=== PATIENT | female | born 1950 | race African-American/Black ===

== ENCOUNTER 2017-12-10 23:26 | Emergency (ER) | payer MEDICARE, OTHER ==
[~2017-12-10] VITALS: Ht 157.5 cm; Wt 113.0 kg
[~2017-12-10 23:26] MED LIST: ASPI-1159 PO; ATORVASTATIN; BACL-141 PO; CHOL100044 PO; CYCLOBENZAPRINE; LEVO175T7 PO; LISI-186 PO; MICAR4 PO; MULT-1146 PO; OMEP40CA34 PO; REGLAN; RISP05 PO; TRAVATAN; TRAZADONE; TYLENOL; ZOFRAN; biotin PO; vitamin c PO; welchol PO
[2017-12-11 05:45] LABS: BASOPHILS % 0.9 % (0.0-2.0); EOSINOPHILS % 1.6 % (0.0-5.0); HEMATOCRIT. 41.9 % (36.0-48.0); HEMOGLOBIN. 14.2 g/dL (12.0-16.0); LYMPHOCYTES % 30.3 % (20.0-50.0); MEAN CORPUSCULAR HEMOGLOBIN 29.4 pg (28.0-32.0); MEAN CORPUSCULAR VOLUME 86.6 fL (81.0-99.0); MEAN PLATELET VOLUME 9.3 fl (7.4-10.4); MONOCYTES % 11.9 % (2.0-8.0); NEUTROPHILS % 55.3 % (40.0-76.0); PLATELET 157 x1000/uL (130-400); RED BLOOD CELL COUNT 4.83 mill/uL (4.2-5.4); RED CELL DISTRIBUTION WIDTH 13.5 % (11.6-14.6)
[2017-12-11 05:54] LABS: CARBON DIOXIDE 23 mEq/L (21-32); CHLORIDE 110 mEq/L (98-107)
[2017-12-11 07:13] VITALS: BP 115/65
[2017-12-11 07:13] LABS: CLARITY URINE CLOUDY (CLEAR); COLOR URINE YELLOW (YELLOW); KETONES URINE NEGATIVE (NEGATIVE); LEUKOCYTE ESTERASE URINE NEGATIVE (NEGATIVE); NITRITE URINE NEGATIVE (NEGATIVE); OCCULT BLOOD URINE 3+ (NEGATIVE); PROTEIN URINE 1+ (NEGATIVE); SPECIFIC GRAVITY URINE 1.021 (1.005-1.030); UROBILINOGEN URINE 0.2 E.U./dL (0.2-1.0)
== END 2017-12-11 07:39 | disposition home or self-care (01) ==
LOC: ER 23:47
DX: R31.9 Hematuria, unspecified (principal); R10.30 Lower abdominal pain, unspecified; M54.9 Dorsalgia, unspecified; G89.29 Other chronic pain; E78.00 Pure hypercholesterolemia, unspecified; E11.9 Type 2 diabetes mellitus without complications; I10 Essential (primary) hypertension; Z79.82 Long term (current) use of aspirin; Z90.49 Acquired absence of other specified parts of digestive tract; Z98.51 Tubal ligation status
CPT/HCPCS: 36415; 80048; 81001; 85025; 87077; 87086; 87186; 99284; A4315

== ENCOUNTER → 2018-07-20 | Outpatient (CLI) | payer MEDICARE, OTHER ==
[~2018-07-20] MED LIST changes: +ALBU90AE IH; -ATORVASTATIN; +CALC-25 PO; -CYCLOBENZAPRINE; +DULA0.75 SQ; +ERYT1OIN6 OP; +FOLI-43 PO; +LIDO5CRE18 TP; +LIFI1DRO OP; +LOVA20TA2 PO; -REGLAN; -RISP05 PO; +TOLT2TAB2 PO; -TRAVATAN; -TRAZADONE; -TYLENOL; -ZOFRAN; -biotin PO; -vitamin c PO; -welchol PO
== END | disposition home or self-care (01) ==
LOC: US 09:28
PROVIDERS: ATTEND Internal Medicine Gastroenterology
DX: K76.0 Fatty (change of) liver, not elsewhere classified (principal); N28.1 Cyst of kidney, acquired; B19.20 Unspecified viral hepatitis C without hepatic coma; R16.0 Hepatomegaly, not elsewhere classified; Z90.49 Acquired absence of other specified parts of digestive tract
CPT/HCPCS: 76700

== ENCOUNTER 2022-10-09 12:59 | Inpatient (IN) | payer MEDICARE, MEDICAID ==
[~2022-10-09] VITALS: Ht 167.6 cm; Wt 125.2 kg
[~2022-10-09 12:59] MED LIST changes: -ASPI-1159 PO; +ASPI-1497 PO; -CALC-25 PO; +CALC-26 PO; -LIFI1DRO OP; +LIFI1DRO3 OP; +OMEP40CA20 PO; -OMEP40CA34 PO; +TOLT2TAB18 PO; -TOLT2TAB2 PO
[2022-10-09] MEDS ORDERED: KETOROLAC 15MG/ML VIAL IV ONE (16:45)
[2022-10-09] MEDS ORDERED: APIXABAN 5 MG TABLET PO STA (17:08)
[2022-10-09] MEDS ORDERED: CEFTRIAXONE 1 G PREMIX 50 ML IV ONE (17:15)
[2022-10-09 19:04] LABS: BASOPHILS % 0.6 % (0.0-2.0); EOSINOPHILS % 0.8 % (0.0-5.0); HEMATOCRIT. 40.1 % (36.0-48.0); LYMPHOCYTES % 26.1 % (20.0-50.0); MEAN CORPUSCULAR HEMOGLOBIN 27.6 pg (28.0-32.0); MEAN CORPUSCULAR VOLUME 85.4 fL (81.0-99.0); MEAN PLATELET VOLUME 8.5 fl (7.4-10.4); NEUTROPHILS % 65.5 % (40.0-76.0); PLATELET 273 x1000/uL (130-400); RED CELL DISTRIBUTION WIDTH 15.3 % (11.6-14.6)
[2022-10-09 19:32] LABS: CHLORIDE 104 mEq/L (98-107)
[2022-10-10 04:39] VITALS: BP 126/83
[2022-10-10 08:00] VITALS: BP 119/84
[2022-10-10] MEDS: PANTOPRAZOLE 40MG DR TABLET PO SCH (08:33)
[2022-10-10] MEDS: APIXABAN 5 MG TABLET PO SCH ×2 (08:33→16:55)
[2022-10-10 11:04] LABS: BASOPHILS % 0.5 % (0.0-2.0); EOSINOPHILS % 1.3 % (0.0-5.0); HEMATOCRIT. 38.2 % (36.0-48.0); HEMOGLOBIN. 12.4 g/dL (12.0-16.0); MEAN CORPUSCULAR HEMOGLOBIN 27.5 pg (28.0-32.0); MEAN CORPUSCULAR VOLUME 84.5 fL (81.0-99.0); MEAN PLATELET VOLUME 8.5 fl (7.4-10.4); MONOCYTES % 7.9 % (2.0-8.0); NEUTROPHILS % 72.3 % (40.0-76.0); PLATELET 284 x1000/uL (130-400); RED BLOOD CELL COUNT 4.52 mill/uL (4.2-5.4); RED CELL DISTRIBUTION WIDTH 15.3 % (11.6-14.6)
[2022-10-10] MEDS: HYDROCODONE/ACETAMINOPHEN 5/325MG TABLET PO PRN ×2 (11:36→20:38)
[2022-10-10 12:00] VITALS: BP 120/64
[2022-10-10 14:10] LABS: CHLORIDE 107 mEq/L (98-107)
[2022-10-10 16:00] VITALS: BP 114/74
[2022-10-10] MEDS ORDERED: NALOXONE HCL 0.4MG/ML VIAL IV PRN (19:00)
[2022-10-10 20:00] VITALS: BP 98/69
[2022-10-11] VITALS (7 sets, daily range): BP systolic 99–119; BP diastolic 66–81
[2022-10-11] MEDS: HYDROCODONE/ACETAMINOPHEN 5/325MG TABLET PO PRN ×3 (03:46→23:49)
[2022-10-11] MEDS: APIXABAN 5 MG TABLET PO SCH ×2 (09:05→18:14)
[2022-10-11] MEDS: PANTOPRAZOLE 40MG DR TABLET PO SCH (09:05)
[2022-10-11] MEDS ORDERED: PROT40 PO (16:45)
[2022-10-11] MEDS ORDERED: SYN150 PO (16:46)
[2022-10-11] MEDS ORDERED: FAMO40TA7 PO (16:47)
[2022-10-11] MEDS ORDERED: PRAV40TA58 PO (16:47)
[2022-10-11] MEDS ORDERED: LISI10TA26 PO (16:48)
[2022-10-11] MEDS ORDERED: METO-293 PO (16:49)
[2022-10-11] MEDS ORDERED: AMLO5TAB88 PO (16:50)
[2022-10-11] MEDS ORDERED: METF-414 PO (16:50)
[2022-10-11] MEDS ORDERED: SERT25TA74 PO (16:51)
[2022-10-11] MEDS ORDERED: RISP0.5T65 PO (16:51)
[2022-10-11] MEDS ORDERED: HYDR12.54 PO (16:52)
[2022-10-11] MEDS ORDERED: DIXL5 PO (16:53)
[2022-10-11] MEDS: ATORVASTATIN CALCIUM 20MG TABLET PO SCH (21:01)
[2022-10-11] MEDS: FAMOTIDINE 20MG TABLET PO SCH (21:05)
[2022-10-12] VITALS: BP 98/55
[2022-10-12 04:00] VITALS: BP 139/59
[2022-10-12 08:00] VITALS: BP 110/71
[2022-10-12] MEDS: FAMOTIDINE 20MG TABLET PO SCH ×2 (08:22→20:56)
[2022-10-12 08:23] LABS: BASOPHILS % 0.8 % (0.0-2.0); EOSINOPHILS % 1.9 % (0.0-5.0); HEMATOCRIT. 35.2 % (36.0-48.0); HEMOGLOBIN. 11.5 g/dL (12.0-16.0); LYMPHOCYTES % 29.5 % (20.0-50.0); MEAN CORPUSCULAR HEMOGLOBIN 27.6 pg (28.0-32.0); MEAN CORPUSCULAR VOLUME 84.3 fL (81.0-99.0); MEAN PLATELET VOLUME 8.4 fl (7.4-10.4); MONOCYTES % 9.9 % (2.0-8.0); NEUTROPHILS % 57.9 % (40.0-76.0); PLATELET 253 x1000/uL (130-400); RED BLOOD CELL COUNT 4.17 mill/uL (4.2-5.4); RED CELL DISTRIBUTION WIDTH 15.3 % (11.6-14.6)
[2022-10-12] MEDS: LISINOPRIL 5MG TABLET PO SCH (08:23)
[2022-10-12] MEDS: LEVOTHYROXINE SODIUM 175MCG TABLET PO SCH (08:23)
[2022-10-12] MEDS: CHOLECALCIFEROL (D3) 1000 UNIT TABLET PO SCH (08:23)
[2022-10-12] MEDS: FOLIC ACID 1MG TABLET PO SCH (08:23)
[2022-10-12] MEDS: ASPIRIN 81MG EC TABLET PO SCH (08:24)
[2022-10-12] MEDS: APIXABAN 5 MG TABLET PO SCH ×2 (08:24→18:38)
[2022-10-12 09:52] LABS: CHLORIDE 103 mEq/L (98-107)
[2022-10-12] MEDS: HYDROCODONE/ACETAMINOPHEN 5/325MG TABLET PO PRN ×2 (10:12→18:41)
[2022-10-12 12:00] VITALS: BP 90/57
[2022-10-12 16:00] VITALS: BP 87/58
[2022-10-12 20:00] VITALS: BP 100/67
[2022-10-12] MEDS: ATORVASTATIN CALCIUM 20MG TABLET PO SCH (20:56)
[2022-10-13] VITALS (7 sets, daily range): BP systolic 96–108; BP diastolic 57–70
[2022-10-13] MEDS: ASPIRIN 81MG EC TABLET PO SCH (08:35)
[2022-10-13] MEDS: FOLIC ACID 1MG TABLET PO SCH (08:35)
[2022-10-13] MEDS: LEVOTHYROXINE SODIUM 175MCG TABLET PO SCH (08:35)
[2022-10-13] MEDS: CHOLECALCIFEROL (D3) 1000 UNIT TABLET PO SCH (08:35)
[2022-10-13] MEDS: FAMOTIDINE 20MG TABLET PO SCH ×2 (08:35→21:04)
[2022-10-13] MEDS: APIXABAN 5 MG TABLET PO SCH ×2 (08:36→17:30)
[2022-10-13] MEDS: LISINOPRIL 5MG TABLET PO SCH (08:38)
[2022-10-13] MEDS: ATORVASTATIN CALCIUM 20MG TABLET PO SCH (21:04)
[2022-10-13] MEDS: HYDROCODONE/ACETAMINOPHEN 5/325MG TABLET PO PRN (23:44)
[2022-10-14] VITALS: BP 92/59
[2022-10-14 04:00] VITALS: BP 99/58
[2022-10-14 08:00] VITALS: BP 113/70
[2022-10-14] MEDS: LEVOTHYROXINE SODIUM 175MCG TABLET PO SCH (08:22)
[2022-10-14] MEDS: CHOLECALCIFEROL (D3) 1000 UNIT TABLET PO SCH (08:22)
[2022-10-14] MEDS: APIXABAN 5 MG TABLET PO SCH ×2 (08:22→18:16)
[2022-10-14] MEDS: FOLIC ACID 1MG TABLET PO SCH (08:22)
[2022-10-14] MEDS: ASPIRIN 81MG EC TABLET PO SCH (08:22)
[2022-10-14] MEDS: LISINOPRIL 5MG TABLET PO SCH (08:22)
[2022-10-14] MEDS: FAMOTIDINE 20MG TABLET PO SCH ×2 (09:05→20:39)
[2022-10-14 11:59] VITALS: BP 88/56
[2022-10-14 16:00] VITALS: BP 70/46
[2022-10-14 20:00] VITALS: BP 95/55
[2022-10-14] MEDS: ATORVASTATIN CALCIUM 20MG TABLET PO SCH (20:39)
[2022-10-14 20:52] LABS: CHLORIDE 105 mEq/L (98-107)
[2022-10-14] MEDS: HYDROCODONE/ACETAMINOPHEN 5/325MG TABLET PO PRN (23:52)
[2022-10-15] VITALS: BP 111/51
[2022-10-15 04:00] VITALS: BP 88/59
[2022-10-15 08:00] VITALS: BP 90/60
[2022-10-15] MEDS: LISINOPRIL 5MG TABLET PO SCH (09:00)
[2022-10-15] MEDS: ASPIRIN 81MG EC TABLET PO SCH (09:54)
[2022-10-15] MEDS: APIXABAN 5 MG TABLET PO SCH ×2 (09:54→18:52)
[2022-10-15] MEDS: FAMOTIDINE 20MG TABLET PO SCH ×2 (09:55→21:31)
[2022-10-15] MEDS: CHOLECALCIFEROL (D3) 1000 UNIT TABLET PO SCH (09:55)
[2022-10-15] MEDS: FOLIC ACID 1MG TABLET PO SCH (09:55)
[2022-10-15] MEDS: LEVOTHYROXINE SODIUM 175MCG TABLET PO SCH (09:55)
[2022-10-15 12:00] VITALS: BP 115/63
[2022-10-15] MEDS: HYDROCODONE/ACETAMINOPHEN 5/325MG TABLET PO PRN ×2 (14:44→21:31)
[2022-10-15] MEDS ORDERED: APIX5TAB MT (15:58)
[2022-10-15 16:00] VITALS: BP 95/57
[2022-10-15 20:31] VITALS: BP 90/54
[2022-10-15] MEDS: ATORVASTATIN CALCIUM 20MG TABLET PO SCH (21:31)
[2022-10-16] VITALS: BP 90/54
[2022-10-16 00:58] VITALS: BP 112/75
[2022-10-16 08:00] VITALS: BP 101/63
[2022-10-16] MEDS: ASPIRIN 81MG EC TABLET PO SCH (09:12)
[2022-10-16] MEDS: LISINOPRIL 5MG TABLET PO SCH (09:13)
[2022-10-16] MEDS: FOLIC ACID 1MG TABLET PO SCH (09:13)
[2022-10-16] MEDS: APIXABAN 5 MG TABLET PO SCH (09:13)
[2022-10-16] MEDS: LEVOTHYROXINE SODIUM 175MCG TABLET PO SCH (09:14)
[2022-10-16] MEDS: FAMOTIDINE 20MG TABLET PO SCH (09:14)
[2022-10-16] MEDS: CHOLECALCIFEROL (D3) 1000 UNIT TABLET PO SCH (09:14)
[2022-10-16] MEDS: HYDROCODONE/ACETAMINOPHEN 5/325MG TABLET PO PRN (11:48)
[2022-10-16 12:00] VITALS: BP 103/58
[2022-10-16 15:31] VITALS: BP 103/58
[2022-10-16 16:00] VITALS: BP 97/64
[2022-10-16] MEDS ORDERED: APIXABAN 5 MG TABLET PO SCH (17:00)
[2022-10-18 08:00] VITALS: BP 140/52
== END 2022-10-16 17:20 | disposition hospice, home (50) | DRG 637 ==
LOC: ER 12:59 → EDBEDREQTM 19:17 → EDBEDREQ 19:17 → ENRESERV 22:21 → MICUSO 22:48 → 6EST 10-10 03:13
PROVIDERS: ADMIT Internal Medicine; ATTEND Internal Medicine
DX: E11.621 Type 2 diabetes mellitus with foot ulcer (principal); E43 Unspecified severe protein-calorie malnutrition; Z68.41 Body mass index [BMI] 40.0-44.9, adult; L89.610 Pressure ulcer of right heel, unstageable; I82.412 Acute embolism and thrombosis of left femoral vein; I82.513 Chronic embolism and thrombosis of femoral vein, bilateral; E78.00 Pure hypercholesterolemia, unspecified; K21.9 Gastro-esophageal reflux disease without esophagitis; I10 Essential (primary) hypertension; I51.3 Intracardiac thrombosis, not elsewhere classified; E03.9 Hypothyroidism, unspecified; E66.9 Obesity, unspecified; I25.10 Atherosclerotic heart disease of native coronary artery without angina pectoris; I89.0 Lymphedema, not elsewhere classified; J44.9 Chronic obstructive pulmonary disease, unspecified; Z74.01 Bed confinement status; Z79.890 Hormone replacement therapy; Z79.01 Long term (current) use of anticoagulants; Z79.82 Long term (current) use of aspirin; Z79.899 Other long term (current) drug therapy; Z79.4 Long term (current) use of insulin; I83.025 Varicose veins of left lower extremity with ulcer other part of foot; L97.529 Non-pressure chronic ulcer of other part of left foot with unspecified severity
CPT/HCPCS: 36415; 73620; 80048; 80053; 84436; 84443; 84481; 84484; 85025; 85651; 93306; 93970; 97162; 99285; A6261; C1893; J0696; J1885

== ENCOUNTER 2022-11-22 09:50 | Emergency (ER) | payer MEDICARE, MEDICAID ==
[~2022-11-22] VITALS: Ht 175.3 cm; Wt 91.0 kg
[~2022-11-22 09:50] MED LIST changes: -ALBU90AE IH; +AMLO5TAB88 PO; +APIX5TAB MT; -BACL-141 PO; +DIXL5 PO; -DULA0.75 SQ; -ERYT1OIN6 OP; +FAMO40TA7 PO; +HYDR12.54 PO; -LEVO175T7 PO; -LIDO5CRE18 TP; -LIFI1DRO3 OP; -LISI-186 PO; +LISI10TA26 PO; -LOVA20TA2 PO; +METF-414 PO; +METO-293 PO; -MICAR4 PO; -OMEP40CA20 PO; +PRAV40TA58 PO; +PROT40 PO; +RISP0.5T65 PO; +SERT25TA74 PO; +SYN150 PO; -TOLT2TAB18 PO
[2022-11-22 12:48] LABS: BASOPHILS % 0.8 % (0.0-2.0); EOSINOPHILS % 1.8 % (0.0-5.0); HEMATOCRIT. 37.6 % (36.0-48.0); HEMOGLOBIN. 12.2 g/dL (12.0-16.0); LYMPHOCYTES % 28.2 % (20.0-50.0); MEAN CORPUSCULAR HEMOGLOBIN 28.5 pg (28.0-32.0); MEAN PLATELET VOLUME 8.9 fl (7.4-10.4); NEUTROPHILS % 61.2 % (40.0-76.0); PLATELET 260 x1000/uL (130-400); RED BLOOD CELL COUNT 4.27 mill/uL (4.2-5.4); RED CELL DISTRIBUTION WIDTH 15.6 % (11.6-14.6)
[2022-11-22 13:16] LABS: CHLORIDE 106 mEq/L (98-107)
[2022-11-22 13:29] LABS: CREATINE KINASE 40 IU/L (26-192)
[2022-11-22] MEDS ORDERED: ACETAMINOPHEN 325MG TABLET PO ONE (15:30)
[2022-11-23] MEDS ORDERED: HYDROCODONE/ACETAMINOPHEN 5/325MG TABLET PO ONE (00:30)
[2022-11-23 13:00] VITALS: BP 112/72
== END 2022-11-23 13:22 | disposition home or self-care (01) ==
LOC: ER 10:01
DX: M79.604 Pain in right leg (principal); M79.605 Pain in left leg; J44.9 Chronic obstructive pulmonary disease, unspecified; E11.9 Type 2 diabetes mellitus without complications; K21.9 Gastro-esophageal reflux disease without esophagitis; E78.00 Pure hypercholesterolemia, unspecified; I10 Essential (primary) hypertension; Z79.899 Other long term (current) drug therapy
CPT/HCPCS: 36415; 71045; 80053; 82550; 83880; 84484; 85025; 99285

== ENCOUNTER 2025-11-10 14:04 | Emergency (ER) | payer OTHER, MEDICAID ==
[~2025-11-10] VITALS: Ht 162.6 cm; Wt 59.0 kg
[~2025-11-10 14:04] MED LIST changes: +ASCO-339 PO; -ASPI-1497 PO; -CALC-26 PO; -CHOL100044 PO; -DIXL5 PO; +DOCU-422 PO; -FAMO40TA7 PO; +FERR325T21 PO; -FOLI-43 PO; -LISI10TA26 PO; +MELA10TA2 PO; -MULT-1146 PO; -PRAV40TA58 PO; -PROT40 PO; -RISP0.5T65 PO; +RISP0.5T79 PO; -SERT25TA74 PO; +SITA25TA3 PO; -SYN150 PO
[2025-11-10 14:20] VITALS: PULSE 80; RESP 20; O2SAT 99
[2025-11-10] MEDS: ALBUTEROL (0.083%) 2.5MG/3ML NEB HHN SCH (14:40)
[2025-11-10] MEDS: IPRATROPIUM BROMIDE (0.02%) 0.5MG/2.5ML NEB HHN SCH (14:40)
[2025-11-10 14:59] VITALS: PULSE 78; RESP 20; O2SAT 98
[2025-11-10 15:15] VITALS: PULSE 84; RESP 18; O2SAT 97
[2025-11-10 15:15] LABS: BASOPHILS % 0.3 % (0.0-2.0); EOSINOPHILS % 2.7 % (0.0-5.0); HEMATOCRIT. 41.0 % (36.0-48.0); HEMOGLOBIN. 12.5 g/dL (12.0-16.0); LYMPHOCYTES % 45.7 % (20.0-50.0); MEAN PLATELET VOLUME 7.6 fl (7.4-10.4); MONOCYTES % 5.6 % (2.0-8.0); NEUTROPHILS % 45.7 % (40.0-76.0); PLATELET 200 x1000/uL (130-400); RED BLOOD CELL COUNT 4.86 mill/uL (4.2-5.4); RED CELL DISTRIBUTION WIDTH 18.3 % (11.6-14.6)
[2025-11-10 15:20] LABS: CREATININE 0.8 mg/dL (0.6-1.0)
[2025-11-10 15:21] LABS: PROTEIN TOTAL 6.9 g/dL (6.0-8.3); TROPONIN I HIGH SENSITIVITY 14 ng/L (3.0-34); UREA NITROGEN BLOOD 15 mg/dL (9-23)
[2025-11-10 15:22] LABS: ASPARTATE AMINOTRANSFERASE 27 IU/L (<34)
[2025-11-10 15:23] LABS: BILIRUBIN DIRECT 0.2 mg/dL (<=3.0); BILIRUBIN TOTAL 0.5 mg/dL (0.1-1.0)
[2025-11-10] MEDS: PREDNISONE 20MG TABLET PO ONE (15:47)
[2025-11-10 17:04] LABS: INFLUENZA TYPE A Presumptive Negative (Pres. Neg.)
[2025-11-10 17:05] LABS: INFLUENZA TYPE B Presumptive Negative (Pres. Neg.)
[2025-11-10 17:06] LABS: RESPIRATORY SYNCYTIAL VIRUS Not Detected (Not Detectd)
[2025-11-10 18:13] VITALS: BP 135/64; PULSE 87; RESP 15; TEMP 36.7; O2SAT 100
== END 2025-11-10 18:11 | disposition short-term general hospital (02) ==
LOC: ER 14:32
DX: J44.1 Chronic obstructive pulmonary disease with (acute) exacerbation (principal); E11.9 Type 2 diabetes mellitus without complications; E78.00 Pure hypercholesterolemia, unspecified; I10 Essential (primary) hypertension; Z86.73 Personal history of transient ischemic attack (TIA), and cerebral infarction without residual deficits; Z79.84 Long term (current) use of oral hypoglycemic drugs; Z79.01 Long term (current) use of anticoagulants; Z79.899 Other long term (current) drug therapy; Z20.822 Contact with and (suspected) exposure to COVID-19
CPT/HCPCS: 99291; 71045; 87426; 80076; 80048; 85025; 87420; 84484; 87804 ×2; 36415; 94640; 93005; 98960; J7512; 94070; 94664